=== PATIENT | male | born 1945 | race Caucasian/White ===

== ENCOUNTER 2020-12-21 10:48 | Emergency (ER) | payer MEDICARE, OTHER ==
[~2020-12-21 10:48] MED LIST: AMLODIPINE BESY10 MG PO; BROVANA15 MCG/2 M INH; BROVANA15 MCG/2 M NEB; CEFDINIR300 MG PO; COUMADIN4 MG PO; COUMADIN5 MG PO; COUMADIN6 MG PO; K-DUR20 MEQ PO; LASIX40 MG PO; LEVAQUIN750 MG PO; MUCINEX 600MG600 MG PO; NEURONTIN400 MG PO; NEURONTIN800 MG PO; NORVASC 10MG TA10 MG PO; PREDNISONE 20MG20 MG PO; PROAIR HFA8.5 GM INH; PROVENTIL HFA6.7 GM INH; PULMICORT0.5 MG/2 M NEB; SPIRIVA RESPIMAT4 G1 INH; SPIRIVA18 MCG INH; SYMBICORT 1601 PUFFS INH; SYMBICORT 80-10.2 GM INH; TAMIFLU 75MG CA75 MG PO; VENTOLIN (2.5 MG/3 M NEB; VENTOLIN HFA IN18 GM INH; VIBRAMYCIN100 MG PO; VITAMIN D-32000 UNI1 PO; ZESTRIL5 MG PO; ZYRTEC10 M3 PO; ZYRTEC10 MG PO
[2020-12-21 12:14] LABS: BASOPHIL 0.7 % (0-2); EOSINOPHIL 1.9 % (0-7); HCT 47.9 % (42.0-52.0); HGB 15.1 g/dl (13.2-18.0); MCH 28.8 pg (25.0-31.0); MCHC 31.5 g/dL (32.0-36.0); MCV 91.2 fL (78.0-100.0); MONOCYTE 9.2 % (0-12); MPV 11.4 fL (6.0-9.5); NEUTROPHIL 75.8 % (41-80); NRBC 0; PLT 330 K/uL (150-400); RBC 5.25 M/uL (4.70-6.00); WBC 10.3 K/uL (4.0-10.5)
[2020-12-21 12:32] LABS: ALBUMIN 2.4 g/dL (3.4-5.0); BUN/CREAT RATIO (CALC) 38.2 RATIO; CREATININE 0.55 mg/dL (0.67-1.17); GLOBULIN (CALCULATION) 3.7 g/dL; POTASSIUM 4.3 mmol/L (3.5-5.1); TOTAL PROTEIN 6.1 g/dL (6.4-8.2)
[2020-12-21 12:47] LABS: BILIRUBIN 2+ mg/dL (NEGATIVE); BLOOD 2+ Ery/uL (NEGATIVE); COLOR YELLOW (YELLOW); GLUCOSE (U) NORMAL (NORMAL); LEUKOCYTES 1+ Leu/uL (NEGATIVE); NITRITE NEGATIVE (NEGATIVE); PROTEIN 1+ mg/dL (NEGATIVE); SPECIFIC GRAVITY 1.025 (1.001-1.030)
[2020-12-21 12:57] LABS: CLARITY HAZY (CLEAR)
[2020-12-21 12:59] LABS: BACTERIA TRACE; MUCOUS TRACE; URINARY WBC TNTC; YEAST PRESENT
== END 2020-12-21 17:53 | disposition home or self-care (01) ==
LOC: FER 10:48
PROVIDERS: Emergency Medicine
DX: K59.00 Constipation, unspecified (principal); R11.0 Nausea; I10 Essential (primary) hypertension; J44.9 Chronic obstructive pulmonary disease, unspecified; Z99.81 Dependence on supplemental oxygen; Z85.038 Personal history of other malignant neoplasm of large intestine; Z87.891 Personal history of nicotine dependence
CPT/HCPCS: 36415; 80053; 81001; 85025; J1170; J2405; J7030